=== PATIENT | female | born 1975 | race Caucasian/White ===

== ENCOUNTER 2017-12-10 11:57 | Emergency (ER) | payer OTHER ==
[~2017-12-10] VITALS: Ht 167.6 cm; Wt 65.8 kg
[~2017-12-10 11:57] MED LIST: HYDACE5 PO; ONDA8 PO
[2017-12-10 12:33] LABS: BASOPHILS ABSOLUTE AUTO 0.07 K/mm3 (0.00-0.23); BASOPHILS PERCENT AUTO 1 % (0-2); EOSINOPHILS ABSOLUTE AUTO 0.14 K/mm3 (0.00-0.68); EOSINOPHILS PERCENT AUTO 1 % (0-6); Hematocrit 40.6 % (33.0-51.0); Hemoglobin 12.4 g/dL (11.5-16.0); IMMATURE GRAN ABSOLUTE AUTO 0.03 K/mm3 (0.00-0.10); IMMATURE GRAN PERCENT AUTO 0 % (0-1); LYMPHOCYTES ABSOLUTE AUTO 1.59 K/mm3 (0.84-5.20); LYMPHOCYTES PERCENT AUTO 14 % (21-46); MONOCYTES ABSOLUTE AUTO 0.54 K/mm3 (0.16-1.47); MONOCYTES PERCENT AUTO 5 % (4-13); Mean Corpuscular HGB 24.8 pg (26.0-34.0); Mean Corpuscular HGB Conc 30.5 g/dL (31.5-36.5); Mean Corpuscular Volume 81 fL (80-100); Mean Platelet Volume 10.1 fL (9.1-12.4); NEUTROPHILS ABSOLUTE AUTO 9.42 K/mm3 (1.96-9.15); NEUTROPHILS PERCENT AUTO 80 % (41-73); Platelet Count 344 K/mm3 (150-400); RDW Standard Deviation 46.8 fL (35.1-46.3); White Blood Cell Count 11.79 K/mm3 (4.00-11.30)
[2017-12-10 12:52] LABS: Alanine Aminotransfer (ALT/SGP 16 U/L (12-78); Albumin, Blood 3.9 g/dL (3.4-5.0); Albumin/Globulin Ratio 1.1 (0.8-1.8); Alk Phos 74 U/L (50-136); Anion Gap 7 mmol/L (6-16); Aspartate Aminotrans (AST/SGOT 8 U/L (12-37); Bilirubin, Total 0.7 mg/dL (0.1-1.0); Blood Urea Nitrogen 18 mg/dL (8-24); Bun/Creatinine Ratio 26.5 (12.0-20.0); CO2, Blood 26 mmol/L (21-32); Calcium, Blood 8.8 mg/dL (8.5-10.1); Chloride, Blood 108 mmol/L (98-108); Creatinine, Blood 0.68 mg/dL (0.40-1.00); Globulin, Blood 3.6 g/dL (2.2-4.0); Glomerular Filtration Rate >60 (60-); Glucose, Blood 82 mg/dL (70-99); Sodium, Blood 141 mmol/L (136-145); Total Protein, Blood 7.5 g/dL (6.4-8.2); Troponin I <0.015 ng/mL (0.000-0.040)
[2017-12-10 16:59] LABS: Free Thyroxine 0.62 ng/dL (0.70-1.60)
[2017-12-10 17:34] LABS: Thyroxine (T4) 5.1 ug/dL (4.8-13.9)
[2017-12-10] MEDS ORDERED: VALA500 PO (18:54)
[2017-12-10] MEDS ORDERED: LIOT5 PO (19:12)
[2017-12-10] MEDS ORDERED: FOLI1 PO (19:12)
[2017-12-10] MEDS ORDERED: VIIBRYD40 MG PO (19:12)
[2017-12-10] MEDS ORDERED: ZOLP10 PO (19:12)
[2017-12-10] MEDS ORDERED: LEVSOD88 PO (19:13)
== END 2017-12-10 19:29 | disposition home or self-care (01) ==
LOC: ER 11:57
PROVIDERS: Emergency Medicine
DX: R00.2 Palpitations (principal); E03.9 Hypothyroidism, unspecified; Z79.899 Other long term (current) drug therapy; F17.200 Nicotine dependence, unspecified, uncomplicated
CPT/HCPCS: 36415; 71046; 80053; 84436; 84439; 84443; 84484; 85025; 93005; 93010; 99284

== ENCOUNTER 2021-03-22 12:56 | Day surgery (SDC) | payer OTHER ==
[~2021-03-22] VITALS: Ht 167.6 cm; Wt 72.6 kg
[~2021-03-22 12:56] MED LIST changes: +FOLI1 PO; +LEVSOD88 PO; +LIOT5 PO; +METO25ER PO; +VALA500 PO; +VIIBRYD40 MG PO; +ZOLP10 PO
== END 2021-03-22 15:48 | disposition home or self-care (01) ==
LOC: ORSCSDS 12:56
PROVIDERS: Internal Medicine Gastroenterology
PROC: 0DB98ZX Excision of Duodenum, Via Natural or Artificial Opening Endoscopic, Diagnostic (ICD-10-PCS; principal; 2021-03-22 14:30)
PROC: 0DB58ZX Excision of Esophagus, Via Natural or Artificial Opening Endoscopic, Diagnostic (ICD-10-PCS; principal; 2021-03-22 14:30)
PROC: 0DBE8ZX Excision of Large Intestine, Via Natural or Artificial Opening Endoscopic, Diagnostic (ICD-10-PCS; principal; 2021-03-22 14:30)
PROC: 0DB68ZX Excision of Stomach, Via Natural or Artificial Opening Endoscopic, Diagnostic (ICD-10-PCS; principal; 2021-03-22 14:30)
DX: D50.9 Iron deficiency anemia, unspecified (principal); K57.30 Diverticulosis of large intestine without perforation or abscess without bleeding; K31.89 Other diseases of stomach and duodenum; K62.5 Hemorrhage of anus and rectum; R10.84 Generalized abdominal pain; R19.4 Change in bowel habit; Z79.899 Other long term (current) drug therapy; F17.290 Nicotine dependence, other tobacco product, uncomplicated
CPT/HCPCS: 87081; 88305; 88312; J2704; J7120

== ENCOUNTER → 2025-06-02 | Outpatient (CLI) | payer OTHER ==
[2025-06-03 07:37] LABS: Rheumatoid Factor, Serum Negative (Negative)
[2025-06-03 12:09] LABS: RPR SCREEN with Reflex Non-reactive (Nonreactive)
[2025-06-04 06:14] LABS: ANTI-NUCLEAR AB ANA,IGG ELISA Detected (None Detected)
[2025-06-04 08:39] LABS: C. TRACHOMATIS BY TMA,THINPREP Negative (Negative); N. GONORRHOEAE BY TMA,THINPREP Negative (Negative)
[2025-06-05 14:12] LABS: ANTINUCLEAR AB (ANA),HEP-2,IGG Detected (<1:80)
== END ==
LOC: LAB SHORT 14:52 → LAB 14:52
PROVIDERS: Family Medicine
DX: Z01.419 Encounter for gynecological examination (general) (routine) without abnormal findings (principal); N76.6 Ulceration of vulva; R53.82 Chronic fatigue, unspecified
CPT/HCPCS: 85651; 86038; 86039; 86140; 86430; 86592; 87491; 87591; 87624; G0145